=== PATIENT | male | born 1985 | race Caucasian/White ===

== ENCOUNTER 2021-03-09 16:45 | Inpatient (IN) | payer OTHER ==
[~2021-03-09] VITALS: Ht 177.8 cm; Wt 90.7 kg
[~2021-03-09 16:45] MED LIST: ANTIFUNGAL15 G1 TP; CLOBETASOL PROP50 M1 TOP; HYDROCODON-ACE1 EAC7 PO; LAMISIL250 MG PO; LEVAQUIN 750 M750 MG PO; NOHOMEMEDICATIONS; PENICILLIN VK500 MG PO
[2021-03-09 16:51] VITALS: BP 135/81
[2021-03-09 17:16] LABS: HEMATOCRIT 45.9 % (42.0-52.0); HEMOGLOBIN 15.8 gm/dL (14.0-18.0); MCHC 34.5 g/dL (28.0-37.0); MCV 95.6 fL (80.0-100.0); NUCLEATED RBCS 0 /100WBC; PLATELET COUNT* 350 thou/uL (150-400); RDW-CV 13.1 % (10.5-14.5); WBC 20.4 thou/uL (4.0-11.0)
[2021-03-09 17:27] LABS: CALCIUM 9.9 mg/dL (8.5-10.1); POTASSIUM 3.8 mmol/L (3.5-5.1)
[2021-03-09 17:32] LABS: ALBUMIN 4.5 g/dL (3.4-5.0); TOTAL BILIRUBIN 1.1 mg/dL (<0.1-1.0); TOTAL PROTEIN 8.6 g/dL (6.4-8.2)
[2021-03-09 17:33] LABS: ABSOLUTE EOSINOPHILS 0.2 thou/uL (0.0-0.7); ABSOLUTE LYMPHOCYTES 1.4 thou/uL (0.8-5.3); ABSOLUTE MONOCYTES 0.8 thou/uL (0.0-1.2)
[2021-03-09 17:34] LABS: PLATELET ESTIMATE ADEQUATE
[2021-03-09 19:56] LABS: URINE BILIRUBIN NEGATIVE (Negative); URINE BLOOD NEGATIVE (Negative); URINE CLARITY CLEAR; URINE COLOR YELLOW; URINE GLUCOSE-RANDOM NEGATIVE (Negative); URINE KETONES 2+ (Negative); URINE LEUKOCYTES-REFLEX NEGATIVE (Negative); URINE NITRITE-REFLEX NEGATIVE (Negative); URINE PROTEIN NEGATIVE (Negative); URINE SPECIFIC GRAVITY <= 1.005 (1.005-1.030); URINE UROBILINOGEN 0.2 E.U./dl (0.2-1.0)
[2021-03-09 20:04] LABS: AMP/METHAMP Negative (Negative); BARBITURATES Negative (Negative); BENZODIAZEPINES Negative (Negative); COCAINE Negative (Negative); METHADONE Negative (Negative); OPIATES Negative (Negative); PCP Negative (Negative); THC POSITIVE (Negative)
[2021-03-09 20:45] VITALS: BP 110/72
[2021-03-09 20:54] VITALS: BP 108/65
[2021-03-10] VITALS (7 sets, daily range): BP systolic 13–130; BP diastolic 52–80
--- NOTE | 2021-03-10 04:41 | NUR ---
PATIENT SLEPT WELL DURING THIS SHIFT AFTER ADMISSION COMPLETED. SIGNIFICANT OTHER BROUGHT IN CLOTHING/BELONGINGS FOR THE PATIENT THEN WENT HOME. INSTRUCTIONS GIVEN FOR ARRIVING FOR SURGERY. NO ORDER FOR SURGERY AT THIS TIME BUT CHART/PATIENT IS READY. PT WITH FLUIDS/ANTIBIOTICS INFUSING PER DR ORDER. PT NPO SINCE PRIOR TO ARRIVAL. NO NAUSEA/VOMITING OR PAIN DURING THIS SHIFT. PT SHOWERED IN ROOM AT HS. FREQUENTLY USED ITEMS AND CALL LIGHT WITHIN REACH. SIDERAILS UPX1. WILL CONTINUE TO MONITOR.
--- NOTE | 2021-03-10 04:45 | NUR ---
PATIENT GIVEN ATIVAN EARLIER IN THE SHIFT FOR ANXIETY/SLEEP. PT BECAME BRADYCARDIAC ON MONITOR. PT RETURNED TO SR AFTER ATIVAN WORE OFF. WILL CONTINUE TO MONITOR.
--- NOTE | 2021-03-10 10:32 | EKG ---
[place] [address] ELECTROCARDIOGRAM REPORT Name: WAYNE CH Room: [address] ADM IN [facility].#: [id number] Admission: 03/09/21 Attend Phys: Prateek Caraballo Discharge: Date of : 83 Date of Service: 03/09/21 1729 Report #: [id number] THIS REPORT FOR: //name// [facility] ED Test Date: 2021-03-09 Test Time: 17:29:04 Pat Name: WAYNE CH Department: Room: [facility] Gender: M Email Administrator: DAVID : 1985 Requested By: Arina Ch Order Number: [id number] MD: Tarun Angelo Measurements Intervals [place] Rate: 44 P: 29 HI: 176 QRS: 62 QRSD: 110 T: 65 QT: 460 QTc: 394 Interpretive Statements Sinus bradycardia RSR' in V1 or V2, probably normal variant Probable left ventricular hypertrophy ST elevation suggests acute pericarditis Baseline wander in lead(s) V4 No previous ECG available for comparison Electronically Signed On 03-10-2021 10:31:54 CDT by Tarun Angelo [email or web address] <ELECTRONICALLY SIGNED> By: Tarun Angelo MD, [facility] 03/10/21 1031 1729 1729 Tarun Angelo MD, [facility] /EPI
[2021-03-10] MEDS ORDERED: HYDROCODON-ACE1 EAC7 PO (12:49)
--- NOTE | 2021-03-12 11:08 | OP ---
[address] [address] OPERATIVE REPORT Name: WAYNE DUMONT Room: [address]#: [id number] Admission: 03/09/21 Attend Phys: David Rose Discharge: 03/10/21 Date of : 83 Report #: [id number] THIS REPORT FOR: cc: FAM - No family physician/PCP FAM - No family physician/PCP Ken Castro MD ~ DOC #: [id number] Ken Castro MD DATE OF SURGERY: 03/10/2021 PREOPERATIVE DIAGNOSIS: Acute appendicitis. POSTOPERATIVE DIAGNOSIS: Acute appendicitis. OPERATION: Laparoscopic appendectomy. SURGEON: Ken Castro MD ANESTHESIA: General. ESTIMATED BLOOD LOSS: Minimal. SPECIMEN: Appendix. DESCRIPTION OF PROCEDURE: After informed consent was obtained, the patient was brought to the operating room and placed supine. SCDs were placed and working, preoperative antibiotics were administered, general anesthesia was induced. The abdomen was prepped and draped in the usual sterile fashion. A 10 mm incision was made below the umbilicus. Fascia was incised and a trocar was placed. Pneumoperitoneum was established. A right upper quadrant and left lower quadrant 5 mm ports were placed. The appendix was grasped and retracted anteriorly. A window was made in the mesoappendix. The mesoappendix was ligated with a combination of LigaSure and SHAGGY abebe load stapler. There was excellent hemostasis. Base of the appendix was stapled off with a SHAGGY blue load stapler. The appendix was placed into an Endopouch and removed. The fascia was then closed with a otjqmq-au-guosv 0 Vicryl. Skin was closed with 4-0 Monocryl. Incisions were sealed with Steri-Strips. COMPLICATIONS: None. DISPOSITION: The patient was taken to recovery in satisfactory condition. MD BAUTISTA Rose/[place] [address] OPERATIVE REPORT Name: WAYNE DUMONT Room: [address]#: [id number] Admission: 03/09/21 Attend Phys: David Rose Discharge: 03/10/21 Date of : 83 Report #: [id number] <ELECTRONICALLY SIGNED> By: Ken Castro MD 03/12/21 1108 0803 [id number] Castro MD /nt
--- NOTE | 2021-03-12 15:08 | PATH ---
[address] [address] PATHOLOGY RPT PROCEDURE Name: WAYNE DUMONT Room: [address] IN .R.#: [id number] Admission: 03/09/21 Date of : 83 Discharge: 03/10/21 Report #: [id number] Path Case #: [id number] [facility] Accession Number: [id number] . 01 Material submitted: . appendix - APPENDIX . 02 Diagnosis: Appendix: - Acute appendicitis, periappendicitis and serositis. (EDY/db; 03/12/2021) LBQ 03/12/2021 1326 Local . 02 Electronically signed: . Elia Lau MD, Pathologist NPI- [id number] . 01 Gross description: . The specimen is received in formalin, labeled "Dima, Wayne", "appendix". Received is an elongated, intact vermiform appendix measuring 5.2 cm in length and up to 1.0 cm in diameter. The serosal surface is roughened, wrinkled, fqpj-upf-irnj and contains multiple pale osorio adhesions as well as a thin layer of pale white, fibrinopurulent exudate. Sectioning reveals a patent lumen free of fecaliths and mass lesions. [employer]k [employer] sections are submitted in cassette A1.(SNA; 03/11/2021) MATTEO/LEVI 03/12/2021 1325 Local . 02 Pathologist provided ICD-10: K35.80, K65.8 . 02 CPT . 525811 Specimen Comment: A courtesy copy of this report has been sent to [phone] Specimen Comment: [phone] Specimen Comment: Report sent to / DR DELGADO Performed at: [address], [place], [place] [id number] MD Anurag Rodriguez MD Phone: [phone] Performed at: 02 [facility] [address], [place], [place] [id number] MD Elia Lau MD Phone: [phone]
== END 2021-03-10 16:45 | disposition home or self-care (01) | DRG 854 ==
LOC: M.ERS 16:45 → M.TBA-ER 19:18 → M.2W 20:10
PROVIDERS: Physician Assistant; ADMIT Internal Medicine; ATTEND Internal Medicine
PROC: 0DTJ4ZZ Resection of Appendix, Percutaneous Endoscopic Approach (ICD-10-PCS; principal; 2021-03-10)
DX: A41.9 Sepsis, unspecified organism (principal); K35.80 Unspecified acute appendicitis; F10.239 Alcohol dependence with withdrawal, unspecified; Y90.9 Presence of alcohol in blood, level not specified; F12.90 Cannabis use, unspecified, uncomplicated; Z20.822 Contact with and (suspected) exposure to COVID-19; Z79.899 Other long term (current) drug therapy

== ENCOUNTER 2021-06-20 08:30 | Emergency (ER) | payer OTHER ==
[~2021-06-20] VITALS: Ht 180.3 cm; Wt 90.7 kg
[2021-06-20 09:33] VITALS: BP 137/85
== END 2021-06-20 09:34 | disposition home or self-care (01) ==
LOC: M.ERS 08:30
DX: U07.1 COVID-19 (principal); R51.9 Headache, unspecified; Z79.891 Long term (current) use of opiate analgesic; Z88.8 Allergy status to other drugs, medicaments and biological substances